=== PATIENT | female | born 1985 | race Caucasian/White ===

== ENCOUNTER 2022-12-28 10:35 | Emergency (ER) | payer BC ==
[2022-12-28] VITALS (10 sets, daily range): BP systolic 111–131; BP diastolic 66–86
[~2022-12-28] VITALS: Ht 154.9 cm; Wt 79.8 kg
[2022-12-28] MEDS ORDERED: ZYRTEC10 MG PO (11:25)
[2022-12-28] MEDS ORDERED: ALLERGY RE50 MCG/ACT NS (11:26)
[2022-12-28] MEDS ORDERED: FIORICET PO (12:51)
[2022-12-28] MEDS ORDERED: ONDANSETRON4 MG PO (12:51)
[2022-12-28] MEDS ORDERED: METHOCARBAMOL500 MG PO (12:51)
== END 2022-12-28 13:13 | disposition home or self-care (01) | DRG 103 ==
LOC: ED 10:35
DX: G43.909 Migraine, unspecified, not intractable, without status migrainosus (principal); F17.290 Nicotine dependence, other tobacco product, uncomplicated